=== PATIENT | male | born 1995 | race Caucasian/White ===

== ENCOUNTER 2019-05-08 08:44 | Inpatient (IN) | payer OTHER ==
[2019-04-25 11:00] VITALS: BMI 44.7
[2019-05-08] MEDS ORDERED: PROPOFOL 20 ML ONE (09:20)
[2019-05-08] MEDS ORDERED: DEXAMETHASONE SOD PHOSPHATE 4 MG/1 ML VIAL ONE ×2 (09:20→10:34)
[2019-05-08] MEDS ORDERED: MIDAZOLAM HCL 2 MG/2 ML SINGLE DOSE VIAL ONE ×2 (09:20→10:45)
[2019-05-08] MEDS ORDERED: KETOROLAC TROMETHAMINE 30 MG/1 ML VIAL ONE (09:20)
[2019-05-08] MEDS ORDERED: ONDANSETRON 4 MG/2 ML VIAL ONE (09:20)
[2019-05-08] MEDS ORDERED: ROCURONIUM BROMIDE 50 MG/5 ML SYRINGE ONE (09:20)
[2019-05-08] MEDS ORDERED: ceFAZolin SODIUM 1 GM VIAL ONE (09:25)
[2019-05-08] MEDS ORDERED: BUPIVACAINE HCL 0.25% 125 MG/50 ML VIAL ONE (09:50)
[2019-05-08] MEDS ORDERED: BUPIVACAINE HCL/PF 0.5% (5 MG/ML) 30 ML VIAL IJ ONE (10:34)
[2019-05-08] MEDS ORDERED: DEXAMETHASONE SOD PHOSPHATE/PF 10 MG/ML SDV ONE (10:35)
[2019-05-08] MEDS ORDERED: ACETAMINOPHEN INJECTION 100 ML IVPB ONE (10:44)
[2019-05-08] MEDS ORDERED: DESFLURANE GAS 240 ML BOTTLE IH ONE (11:14)
[2019-05-08] MEDS ORDERED: NEOSTIGMINE METHYLSULFATE 0.5 MG/ML - 10 ML MDV ONE (11:15)
[2019-05-08] MEDS ORDERED: GLYCOPYRROLATE 0.2 MG/1 ML VIAL ONE (11:15)
[2019-05-08] MEDS ORDERED: EPHEDRINE SULFATE/0.9% NACL/PF 50 MG/10 ML SYRINGE NR ONE (11:58)
[2019-05-08] MEDS ORDERED: BUPIVACAINE HCL/PF 0.25% (2.5MG/ML) 10 ML VIAL IJ ONE (12:45)
[2019-05-08] MEDS ORDERED: TRIMETHOBENZAMIDE HCL 200MG/2ML INJ IM PRN (13:00)
[2019-05-08] MEDS ORDERED: SODIUM CHLORIDE 1,000 ML IV SCH ×2 (13:00→13:15)
[2019-05-08] MEDS ORDERED: ONDANSETRON 4 MG/2 ML VIAL IVPUSH PRN (13:01)
[2019-05-08] MEDS ORDERED: HYDROmorphone HCL CARPU-JECT 1 MG/1 ML DISP.SYRIN IM PRN (13:01)
--- NOTE | 2019-05-08 13:07 | OP ---
Operative Note - Note: Operative Date: 05/08/19 Pre-Operative Diagnosis: Morbid Obesity. Hyperbilirubinemia Operation: Laparoscopic Vertical SLeeve Gastrectomy. Wedge Biopsy of Left Lobe of Liver. Diagnostic Laparoscopy Findings: Greater curve sleeve gastrectomy performed with #[address] Wedge biopsy performed on left lobe of liver secondary to hyperbillrubinemia and hepatomegaly Post-Operative Diagnosis: Same as Pre-op (Hepatomegaly) Surgeon: Omar Johnston Roll Scale Worker: Chris Vale Anesthesia: General Specimens Removed: Greater curve of stomach. Wedge biopsy of left lobe of liver Estimated Blood Loss (mls): 30 Operative Report Dictated: Yes
--- NOTE | 2019-05-08 13:14 | SURG ---
Surgery Cyberathlete Note Cyberathlete: Chris Vale PA-C Date of Service: 05/08/19 Diagnosis: Morbid Obesity. Hyperbilirubinemia Procedure: Laparoscopic Vertical SLeeve Gastrectomy. Wedge Biopsy of Left Lobe of Liver. Diagnostic Laparoscopy I was present for the entirety of the operative procedure. For further detail, please refer to operative report. Visit type - Case Type Case Type: Scheduled - Emergency Emergency Visit: No - New patient This patient is new to me today: Yes Date on this admission: 05/08/19 - Critical Care Critical Care patient: No
[2019-05-08] MEDS ORDERED: LACTATED RINGERS SOLUTION 1,000 ML IV SCH (13:30)
[2019-05-08] MEDS: METOCLOPRAMIDE HCL INJECTION 10 MG/2 ML VIAL IVPUSH SCH ×2 (13:39→19:17)
[2019-05-08 14:11] LABS: BILIRUBIN,TOTAL 1.3 mg/dl (0.2-1); CALCIUM 8.8 mg/dl (8.5-10); POTASSIUM 3.9 mmol/L (3.5-5.1); TOT PROT 6.7 g/dl (6.4-8.2)
[2019-05-08 14:15] LABS: HEMATOCRIT 41.9 % (35.4-49); HEMOGLOBIN 14.1 GM/dl (11.7-16.9); MCH 29.7 pg (25.7-33.7); MCHC 33.7 g/dl (32.0-35.9); MEAN CELL VOLUME 88.3 fl (80-96); MEAN PLT VOLUME 9.1 fl (7.5-11.1); PLATELET COUNT 254 K/MM3 (134-434); RBC 4.74 M/mm3 (4.00-5.60); RDW 12.8 % (11.9-15.9)
--- NOTE | 2019-05-08 15:20 | OP ---
DATE OF OPERATION: 05/08/2019 PREOPERATIVE DIAGNOSES: 1. Morbid obesity. 2. Hyperbilirubinemia. POSTOPERATIVE DIAGNOSES: 1. Morbid obesity. 2. Hyperbilirubinemia. 3. Hepatomegaly. PROCEDURE PERFORMED: 1. Laparoscopic vertical sleeve gastrectomy. 2. Wedge biopsy of the left lobe of the liver. 3. Diagnostic laparoscopy. OPERATING SURGEON: Omar Johnston MD GROUND NUCLEAR WEAPONS ASSEMBLY OFFICER: JULIA Riley ANESTHESIA: General. OPERATIVE PROCEDURE: The patient was brought in to the operating room, placed on the OR table in a supine position. All precautions were taken initially, including padding for the back and the feet, and Venodyne boots were placed on both lower extremities. At that point the abdomen was prepped and draped in the usual manner. A Veress needle was placed in the left upper quadrant and a pneumoperitoneum was established. Under direct vision, a number 5 bladeless trocar was placed in the left upper quadrant. Through that trocar, a laparoscopic camera was placed. Under direct vision, a number 15 bladeless trocar was placed in the midline in a supraumbilical position, followed by a number 5 bladeless trocar in the right upper quadrant and a number 5 bladeless trocar below the left costal margin. A Livan liver retractor was then placed in the epigastrium to retract the left lobe of the liver. The left lobe was noted to be moderately enlarged, and because the patient had an elevated bilirubin preoperatively, it was decided that a wedge biopsy would be performed. Using the LigaSure device, the edge of the inferior left lobe was used, and a triangular-shaped wedge biopsy was taken and sent off the field as specimen to Pathology. The parenchyma was dried but still electrocautery was used to score the parenchyma to make sure no bleeding occurred. At this juncture, the patient was placed in 20-degree reverse Trendelenburg position by anesthesia. The pylorus was noted on the distal stomach and 6 cm was measured proximally from there. Here, the greater curve and the anterior stomach wall were lifted toward the anterior abdominal wall by the operating surgeon as the stylist assistant surgeon retracted the gastrocolic ligament inferiorly. The LigaSure device was used to dissect the gastrocolic ligament off the greater curve of the stomach. This continued in a superior vertical direction along the greater curve until the final short gastric vessel between the superior pole of the spleen and the proximal fundus was divided. At this juncture, Anesthesia advanced a number 36 bougie along the lesser curve. With the bougie held along the lesser curve, a series of bart were performed, with the first 3 being black bart 6 cm in length along the bougie. This was followed by a series of purple bart, also 6 cm in length, and also hugging the bougie. When the final staple was fired in the left upper quadrant, the greater curve was now completely detached from the lesser curve. It should be noted that, prior to firing each staple, both the anterior and posterior hale were checked, were equal, and in the area of the esophagogastric junction, approximately 1 to 1.5 cm of serosa remained on the anterior and posterior surfaces. At this juncture, the entire staple line from proximal to distal was oversewn with the Endo Stitch for further security. At this point, saline was placed around the staple line. Anesthesia inserted air into the bougie, which showed the entire stomach distended down to the pylorus, no obstruction and no leaks were noted. At this point, all irrigation was suctioned free and anesthesia removed the bougie under direct vision. The resected greater curve was now removed through the number 15 trocar site in the midline and under direct vision the number 15 trocar site was closed with endo-closure device to prevent internal hernia and to prevent bleeding. Under direct vision, all trocars removed and pneumoperitoneum was released. All trocar sites then received 0.25% Marcaine, were closed with 4-0 Biosyn in subcuticular fashion. The number 15 trocar in the middle was first closed with 3-0 Vicryl in the subcutaneous tissue, followed by 4-0 Biosyn in subcuticular fashion. Dressings were applied. Patient awoke from anesthesia and transferred out of the operating room to recovery room in stable condition. Expected blood loss was 30 mL. Patient transferred to the recovery room in stable condition. Nicole [id number]
[2019-05-08] MEDS: HYDROmorphone HCL CARPU-JECT 1 MG/1 ML DISP.SYRIN IVPB PRN (16:08)
[2019-05-08] MEDS: FAMOTIDINE 20 MG/50 ML IVPB 20 MG/50 ML MG IVPB SCH (21:17)
[2019-05-08] MEDS ORDERED: FAMOTIDINE 20 MG/50 ML IVPB 50 ML IVPB SCH (22:00)
[2019-05-08] MEDS: ENOXAPARIN NA (PORCINE) 40 MG/0.4 ML DISP.SYRIN SQ SCH (22:37)
[2019-05-08] MEDS ORDERED: ENOXAPARIN NA (PORCINE) 40 MG/0.4 ML DISP.SYRIN SQ SCH (23:55)
[2019-05-09] MEDS: METOCLOPRAMIDE HCL INJECTION 10 MG/2 ML VIAL IVPUSH SCH ×3 (01:53→13:29)
[2019-05-09] MEDS: HYDROmorphone HCL CARPU-JECT 1 MG/1 ML DISP.SYRIN IVPB PRN ×3 (03:55→07:59)
--- NOTE | 2019-05-09 07:22 | PN ---
Progress Note (short form) - Note Progress Note: 23M s/p Lap gastric sleeve POD 1, pt seen and examined at bedside. Pt states he had one episode of vomiting yestday after the surgery, but has since felt well. Pt states that his abd pain is controlled. Denies fever, chills, cp, SOB. Pt ambulating and urinating well. Last Vital Signs Temp Pulse Resp BP Pulse Ox 98.3 F 76 18 143/56 L 98 05/09/19 06:00 05/09/19 06:00 05/09/19 06:00 05/09/19 06:00 05/09/19 06:00 PE: Gen: a&OX 3 Resp: breathing comfortably Abd; soft, nondistended, mild diffuse tenderness, incisions are clean with no erythema or discharge. LE: no edema Problem List - Problems (1) S/P gastric surgery Assessment/Plan: Plan -Upper GI series in AM, if no leak with start Bariatric liquid diet -if pt continues to do well will consider discharge later today. -DVT ppx -pain control Case discussed with Dr. Johnston who agrees with plan. Code(s): Z98.890 - OTHER SPECIFIED POSTPROCEDURAL STATES
--- NOTE | 2019-05-09 07:40 | CONSULT ---
Consult - History of Present Illness History of Present Illness: 23 y/o male with h/o obesity s/p gastric sleeve - Past Medical History Gastrointestinal: Yes: Other (hepatomegaaly.hyperbilirubinemia) - Alcohol/Substance Use Hx Alcohol Use: No - Smoking History Smoking history: Never smoked Home Medications - Allergies Allergies/Adverse Reactions: Allergies Allergy/AdvReac Type Severity Reaction Status Date / Time No Known Allergies Allergy Verified 04/25/19 10:54 - Home Medications Home Medications: Ambulatory Orders Famotidine [Pepcid] 20 mg PO BID #60 tablet 05/08/19 Oxycodone HCl/Acetaminophen [Percocet 5-325 mg Tablet] 1 tab PO Q6H PRN #20 tablet MDD 4 05/08/19 Review of Systems - Review of Systems Neck: reports: No Symptoms Cardiovascular: reports: No Symptoms Respiratory: reports: No Symptoms Gastrointestinal: reports: Abdominal Pain (11/06) Neurological: reports: No Symptoms Physical Exam Vital Signs: Vital Signs Temperature 98.3 F 05/09/19 06:00 Pulse Rate 76 05/09/19 06:00 Respiratory Rate 18 05/09/19 06:00 Blood Pressure 143/56 L 05/09/19 06:00 O2 Sat by Pulse Oximetry (%) 98 05/09/19 06:00 Cardiovascular: Yes: Regular Rate and Rhythm Respiratory: Yes: Regular, CTA Bilaterally Gastrointestinal: Yes: Soft, Hypoactive Bowel Sounds, Tenderness Problem List - Problems (1) S/P gastric surgery Assessment/Plan: plan per surgery pain control Code(s): Z98.890 - OTHER SPECIFIED POSTPROCEDURAL STATES (2) Obesity Assessment/Plan: monitor post sleeve Code(s): E66.9 - OBESITY, UNSPECIFIED (3) Leukocytosis Assessment/Plan: probably reactive pt afebrile Code(s): D72.829 - ELEVATED WHITE BLOOD CELL COUNT, UNSPECIFIED
[2019-05-09 08:29] LABS: HEMOGLOBIN 13.8 GM/dl (11.7-16.9); MCH 29.5 pg (25.7-33.7); MCHC 32.9 g/dl (32.0-35.9); MEAN CELL VOLUME 89.4 fl (80-96); MEAN PLT VOLUME 9.1 fl (7.5-11.1); PLATELET COUNT 247 K/MM3 (134-434); RDW 13.1 % (11.9-15.9); WHITE BLOOD COUNT 13.6 K/mm3 (4.0-10.8)
--- NOTE | 2019-05-09 08:40 | PN ---
Progress Note (short form) - Note Progress Note: ANESTHESIA POSTOP 23 YO MALE POD#1 S/P GASTRIC SLEEVE, GETA, PNB Patient resting comfortably in bed. No n/v. Pain adequately controlled. Ambulating. VSS, Afebrile Continue current care. Encouraged IS. No anesthetic complications
[2019-05-09 08:55] LABS: ALBUMIN 3.9 g/dl (3.4-5.0); BILIRUBIN,TOTAL 1.1 mg/dl (0.2-1); CALCIUM 9.1 mg/dl (8.5-10); CREATININE 0.9 mg/dl (0.55-1.3); POTASSIUM 4.3 mmol/L (3.5-5.1); TOT PROT 6.4 g/dl (6.4-8.2)
[2019-05-09] MEDS: ENOXAPARIN NA (PORCINE) 40 MG/0.4 ML DISP.SYRIN SQ SCH (09:48)
[2019-05-09] MEDS: FAMOTIDINE 20 MG/50 ML IVPB 20 MG/50 ML MG IVPB SCH (09:48)
[2019-05-09] MEDS ORDERED: oxyCODONE HCL 5 MG TABLET PO PRN ×2 (12:18→12:49)
[2019-05-09] MEDS ORDERED: SODIUM CHLORIDE 1,000 ML IV SCH ×2 (12:30→13:00)
[2019-05-09] MEDS ORDERED: ACETAMINOPHEN 325 MG TABLET (FP) PO PRN (12:49)
--- NOTE | 2019-05-09 12:53 | PN ---
Progress Note (short form) - Note Progress Note: POD#1 Afebrile; VSS Pt doing well No N/V mild incisional pain/discomfort P/E- Abd- all trocar sites clean, dry Ext- no swelling or edema UGI- no leak, no obstruction WBC-13.6 (no change) H/H-13.8/42 P- 2 oz clear liquids PO 5-6 times per day D/C pt home F/U in 9 days
[2019-05-09 14:06] VITALS: BP 148/76; PULSE 83; TEMP 98.5
--- NOTE | 2019-05-09 14:06 | DS ---
DATE OF ADMISSION: 05/08/2019 DATE OF DISCHARGE: 05/09/2019 HISTORY OF PRESENT ILLNESS/HOSPITAL COURSE: Patient is a 23-year-old gentleman with a history of morbid obesity for many years despite multiple attempts at dietary weight loss. He received nutritional, psychological, and medical clearance prior to undergoing elective sleeve gastrectomy surgery. Patient was admitted to [facility] on May 08, 2019, where a sleeve gastrectomy was performed. The details of the procedure are as described in the operative note. Postoperatively, the patient was sent to the recovery room where he was stabilized and sent to the floor on the personnel monitor. He remained stable overnight, although he did have 1 episode of vomiting and had nausea periodically. He was treated for both the nausea and also for pain through the evening. On the morning of May 09, 2019, the patient underwent an upper GI series, which showed no signs of obstruction and no leak from the staple line. He returned to his room where he tolerated 2 ounces of clear liquids well and at that point was given instructions for further diet at home. With the patient's lab values normal and the patient tolerating liquids, he is scheduled to be discharged home. He was given full instructions and to follow up in 9 days with the bariatric service. CHANA NEWMNA M.D. [id number]
--- NOTE | 2019-05-22 10:17 | PATH ---
Surgical Pathology Report Patient Name: JOSE MIGUEL EAST Med. Rec. #: [id number] /Age/Gender: 1995 (Age: 23) / M Account: [id number] Location: [facility] MED-SURG Taken: 05/08/2019 Received: 05/08/2019 Reported: 05/22/2019 Physicians: Omar Johnston M.D. Specimen(s) Received A: GREATER CURVATURE OF STOMACH B: LIVER BIOPSY Clinical History Morbid obesity Final Diagnosis A. GREATER CURVATURE, STOMACH, LAPAROSCOPIC GASTRIC SLEEVE EXCISION: PORTION OF STOMACH SHOWING MILD CHRONIC MUCOSAL INFLAMMATION. IMMUNOSTAIN IS NEGATIVE FOR H PYLORI ORGANISMS. B. LIVER, BIOPSY: PORTION OF LIVER SHOWING MILD STEATOSIS (1-2%). TRICHROME STAIN SHOWS NO APPRECIABLE INCREASE IN FIBROSIS. IRON STAIN IS NEGATIVE. Electronically Signed Pooja Montero M.D. Gross Description A. Received in formalin, labeled "greater curvature, stomach," is a 19.5 x 4.5 cm. portion of stomach with a stapled margin of resection. The serosa is joel-krueger with minimal attached fat. The mucosa is joel-pink with normal folds. No mucosal masses are identified. Plant Breeder Scientist sections are submitted in one cassette. B. received in formalin, labeled "liver biopsy" is a 2 x 0.7 x 0.4 cm portion of yellow-brown tissue. The tissue is sectioned and entirely submitted in one cassette. AE/05/09/2019 ebram/05/09/2019
== END 2019-05-09 14:06 | disposition home or self-care (01) | DRG 621 ==
LOC: FM/S 08:44
PROVIDERS: ADMIT Surgery; ATTEND Surgery
PROC: 0DB64Z3 Excision of Stomach, Percutaneous Endoscopic Approach, Vertical (ICD-10-PCS; principal; 2019-05-08 11:21)
PROC: 0FB24ZX Excision of Left Lobe Liver, Percutaneous Endoscopic Approach, Diagnostic (ICD-10-PCS; 2019-05-08 11:21)
DX: E66.01 Morbid (severe) obesity due to excess calories (principal); R16.0 Hepatomegaly, not elsewhere classified; E80.6 Other disorders of bilirubin metabolism; D72.829 Elevated white blood cell count, unspecified; Z68.41 Body mass index [BMI] 40.0-44.9, adult
CPT/HCPCS: 36415; 74241-TC-FY; 80053; 85027; 88305-TC; 88313-TC; 88342-TC; 94760; J0131; J7030; Q9967

== ENCOUNTER 2019-07-06 13:05 | Emergency (ER) | payer OTHER ==
[2019-07-06 13:17] VITALS: BP 137/52; PULSE 75; TEMP 97.8; BMI 36.3
--- NOTE | 2019-07-06 13:18 | PDOC ---
History of Present Illness - General Chief Complaint: Pain Stated Complaint: ABD PAIN - History of Present Illness Initial Comments: The pt is a 23M s/p gastric sleeve 04/2019 who presents for evaluation of abdominal pain. The pt reports he was lowering a palate of paper from a truck when he felt a strain in his epigastrium. The pain as since been sharp/burning, non-radiating, constant, worse with movement and touch, and mildly alleviated by ice. He denies recent illness, fevers/chills, nausea/vomiting, chest pain, trouble breathing, diarrhea, dysuria, or blood in his stool or urine. 07/06/19 13:42 Past History - Past Medical History Allergies/Adverse Reactions: Allergies Allergy/AdvReac Type Severity Reaction Status Date / Time No Known Allergies Allergy Verified 07/06/19 13:09 Home Medications: Ambulatory Orders NK [No Known Home Medication] 07/06/19 Anemia: No Asthma: No Cancer: No Cardiac Disorders: No CVA: No COPD: No CHF: No Dementia: No Diabetes: No GI Disorders: No Disorders: No HTN: No Hypercholesterolemia: No Liver Disease: No Seizures: No Thyroid Disease: No - Surgical History Abdominal Surgery: Yes (gastric sleeve 05/08/19) Appendectomy: No Cardiac Surgery: No Cholecystectomy: No Lung Surgery: No Neurologic Surgery: No Orthopedic Surgery: No - Psycho Social/Smoking Cessation Hx Smoking History: Never smoked Have you smoked in the past 12 months: No Information on smoking cessation initiated: No Hx Alcohol Use: No Drug/Substance Use Hx: No Substance Use Type: None Hx Substance Use Treatment: No Review of Systems - Review of Systems Able to Perform ROS?: Yes Comments:: GENERAL/CONSTITUTIONAL: No fever or chills. No weakness HEAD, EYES, EARS, NOSE AND THROAT: No change in vision. No change in hearing. No sore throat CARDIOVASCULAR: No chest pain or shortness of breath RESPIRATORY: Denies cough, hemoptysis GASTROINTESTINAL: No nausea, vomiting, diarrhea or constipation GENITOURINARY: No dysuria, frequency, or change in urination MUSCULOSKELETAL: No joint or muscle swelling or pain. No neck or back pain SKIN: No rash NEUROLOGIC: No headache, vertigo, loss of consciousness, or change in strength/ sensation ENDOCRINE: No increased thirst. No abnormal weight change HEMATOLOGIC/LYMPHATIC: No anemia, easy bleeding, or history of blood clots ALLERGIC/IMMUNOLOGIC: No hives or skin allergy 07/06/19 13:17 Is the patient limited Faroese proficient: No *Physical Exam - Vital Signs Last Vital Signs Temp Pulse Resp BP Pulse Ox 97.8 F 75 18 137/52 L 100 07/06/19 13:05 07/06/19 13:05 07/06/19 13:05 07/06/19 13:05 07/06/19 13:05 - Physical Exam Comments: GENERAL: Awake, alert, and oriented to person/place/time, in no acute distress HEAD: No signs of trauma, normocephalic, atraumatic EYES: PERRLA, EOMI, sclera anicteric, conjunctiva clear ENT: Hearing grossly normal, nares patent, oropharynx clear without exudates. Moist mucosa LUNGS: No distress, speaks in full sentences, clear to auscultation bilaterally HEART: Regular rate and rhythm, normal S1 and S2, no murmurs appreciated, peripheral pulses normal and equal bilaterally ABDOMEN: Soft, protuberant, significant epigastric TTP w/o rebound or guarding, healing surgical incisions noted; normoactive bowel sounds EXTREMITIES: Normal inspection, Normal range of motion, no edema. No clubbing or cyanosis NEUROLOGICAL: Cranial nerves II through XII grossly intact. Normal speech, normal gait, no focal sensorimotor deficits SKIN: Warm, Dry, other than incisions noted above 07/06/19 13:17 ED Treatment Course - LABORATORY CBC & Chemistry Diagram: 07/06/19 13:45 - RADIOLOGY Radiograph Interpretation: CT/ABDOMEN & PELVIS CT WITH CONTR The lung bases are clear. The patient is S/P sleeve gastrectomy. There is no evidence of perigastric fluid collections or gastric outlet obstruction. The liver, spleen, pancreas, adrenal glands and kidneys demonstrate no significant abnormalities. The gallbladder is clear. There is no evidence of intra-abdominal or retroperitoneal lymphadenopathy or fluid collections. There is no evidence of pneumoperitoneum, bowel obstruction or intra-abdominal abscess. There is no CT evidence of acute appendicitis or diverticulitis. Examination of the pelvis demonstrates no evidence of pelvic masses, fluid collections or lymphadenopathy. There is a moderate amount of retained fecal material within the colon. There is a trace amount of free fluid within the dependent portion of the pelvis. There is no evidence of acute bony pathology. IMPRESSION: 1. S/P sleeve gastrectomy with no evidence of perigastric fluid collections or outlet obstruction. 2. Fecal retention, no acute pathology within the abdomen or pelvis. Please see above discussion. 07/06/19 15:55 Medical Decision Making - Medical Decision Making The pt is a 23M s/p gastric sleeve 04/2019 who presents for evaluation of epigastric abdominal pain s/p lifting a heavy object at work. ED Course Case discussed w/ Dr. Johnston Tylenol for pain CMP CT A&P 07/06/19 13:[address] w/o acute pathology CK wnl Pain likely 2/2 muscle strain Plan for D/C w/ PCP f/u Discharge instructions and return precautions given Patient in agreement and verbalized understanding Dispo: Home 07/06/19 15:58 Discharge - Discharge Information Problems reviewed: Yes Clinical Impression/Diagnosis: Abdominal pain Qualifiers: Abdominal location: epigastric Qualified Code(s): R10.13 - Epigastric pain Condition: Stable - Admission No - Follow up/Referral Referrals: [facility] [place] [Provider Group] Omar Johnston MD [Staff Physician] - - Patient Discharge Instructions Patient Printed Discharge Instructions: DI for Abdominal Pain-Adult, DI for Musculoskeletal Pain Additional Instructions: You were seen in the Emergency Department for evaluation of abdominal pain. Your CT scan was negative for acute pathology. Refrain from heavy lifting until your injury heals. For pain, you may take Tylenol 650mg every 6 hours as needed. Review the handouts provided at discharge. Follow up with your primary care provider and your surgeon. Return to the Emergency Department if you develop fevers, chest pain, trouble breathing, worsening pain, change in sensation, worsening symptoms, or any new/concerning symptoms. - Post Discharge Activity Work/Back to School Note: Back to Work
[2019-07-06] MEDS ORDERED: ACETAMINOPHEN 500 MG TABLET (FP) PO ONE (13:30)
[2019-07-06] MEDS ORDERED: ACETAMINOPHEN 500 MG TABLET (FP) ONE (13:34)
--- NOTE | 2019-07-06 14:11 | PDOC ---
Attending Attestation - Resident Resident Name: Alvin Irizarry - ED Attending Attestation I have performed the following: I have examined & evaluated the patient, The case was reviewed & discussed with the resident, I agree w/resident's findings & plan, Exceptions are as noted - HPI HPI: 07/06/19 14:07 Young male with recent gastric sleeve by Dr. Johntson April 2019 was trying to prevent heavy pallets from falling off his truck, experienced sudden pain in his epigastrium after the exertion. States it feels like a muscle strain, but worried about his recent surgery. Since the injury, he has not tried to eat, but he has taken sips of water without difficulty. No nausea, regurgitation, vomiting. - Physicial Exam PE: 07/06/19 14:09 Physical exam: Vital signs normal. Abdomen is nondistended with normal bowel sounds. However, there is mild to moderate tenderness in the epigastrium, and mid abdomen. No guarding or rebound. No palpable masses or defects in the abdominal musculature. - Medical Decision Making 07/06/19 14:10 Assessment: Probable abdominal muscle strain. Rule out internal injury at the site of recent surgery. Plan: Dr. Johnston, bariatric surgeon who performed the procedure, was contacted by phone. He recommended CT scanning for further evaluation. 07/06/19 16:08 The patient's bariatric surgeon, Dr. Johnston, evaluated the patient in the emergency room. He also reviewed the abdominal CT. 07/06/19 16:45 CK is negative. Patient remains clinically stable, pain is controlled on Tylenol. Discharge is cleared with Dr. Johnston. Rest, heat, and follow-up Dr. Johnston as scheduled. Fully ambulatory and in no significant distress at discharge with father to follow-up as directed
[2019-07-06 14:18] LABS: ALBUMIN 3.9 g/dl (3.4-5.0); BILIRUBIN,TOTAL 1.5 mg/dl (0.2-1); CALCIUM 8.9 mg/dl (8.5-10); CREATININE 0.8 mg/dl (0.55-1.3); POTASSIUM 3.9 mmol/L (3.5-5.1); TOT PROT 6.6 g/dl (6.4-8.2)
[2019-07-06 16:58] LABS: EPITHELIAL CELLS FEW /hpf
== END 2019-07-06 16:55 | disposition home or self-care (01) ==
LOC: FER 13:05
DX: R10.13 Epigastric pain (principal); Z98.84 Bariatric surgery status
CPT/HCPCS: 36415; 74177-TC; 80053; 81003; 81015; 82550; 99284-25